=== PATIENT | male | born 1940 | race Caucasian/White ===

== ENCOUNTER → 2024-09-25 12:45 | Outpatient (REF) | payer MEDICARE, SELFPAY | LOC: HWRAD 12:45 | PROVIDERS: ATTENDING PHYSICIAN Internal Medicine Hematology & Oncology; FAMILY PHYSICIAN Family Medicine | DX: D69.6 Thrombocytopenia, unspecified (principal); D70.9 Neutropenia, unspecified; D61.818 Other pancytopenia | CPT/HCPCS: 76700 ==

== ENCOUNTER → 2024-10-02 08:53 | Outpatient (REF) | payer MEDICARE, SELFPAY ==
[2024-10-02 09:29] VITALS: BP 115/58; BP_SYST 62
[2024-10-02 09:31] LABS: INR 0.92; PT 12.8 Sec (11.4-14.6)
[2024-10-02 09:40] LABS: % Basophils 0.9 % (0-2); % Eosinophils 0.9 % (0-6); % Lymphocytes 30.1 % (20.5-51.1); % Monocytes 3.7 % (1.7-9.3); % Neutrophils 64.4 % (42.2-75.2); Absolute Lymphocytes 0.7 10^3/uL (1.2-3.4); Absolute Monocytes 0.1 10^3/uL (0.1-0.6); Absolute Neutrophils 1.4 10^3/uL (1.4-6.5); Hematocrit 33.1 % (39.0-52.0); Hemoglobin 11.5 g/dL (13.0-18.0); Mean Corp Hgb Conc. 34.7 g/dL (33.0-37.0); Mean Corpuscular Hgb 34.6 pg (27.0-31.0); Mean Corpuscular Volume 99.7 fL (80.0-94.0); Nucleated Red Blood Cells % 0 % (-); Red Blood Cell Count 3.32 10^6/uL (4.70-6.10); Red Cell Dist. Width 13.4 % (11.5-14.5); White Blood Cell Count 2.2 10^3/uL (4.8-10.8)
[2024-10-02] MEDS: ATIVAN 0.5 MG IV (10:09)
[2024-10-02] MEDS: NSS (PRESERVATIVE FREE) 0.25 ML IV (10:09)
[2024-10-02 10:30] LABS: Platelet Count 73 10^3/uL (130-400)
[2024-10-02 10:31] LABS: Mean Platelet Volume 9.9 fL (7.4-10.4)
[2024-10-02 10:48] VITALS: BP 95/70; BP_SYST 51
[2024-10-02 10:50] VITALS: BP 100/54
[2024-10-02 10:55] VITALS: BP 100/56
[2024-10-02 11:00] VITALS: BP 102/50
== END ==
LOC: RADI 08:53
PROVIDERS: ATTENDING PHYSICIAN Internal Medicine Hematology & Oncology; FAMILY PHYSICIAN Family Medicine
DX: D61.818 Other pancytopenia (principal)
CPT/HCPCS: 88305; 88311; 88312; 36415; 38222; 77012; 85025; 85610; 88313

== ENCOUNTER → 2024-10-16 09:22 | Outpatient (REF) | payer MEDICARE, SELFPAY | LOC: HWRAD 09:22 | PROVIDERS: ATTENDING PHYSICIAN Family Medicine | DX: M79.641 Pain in right hand (principal) | CPT/HCPCS: 73130 ==